=== PATIENT | male | born 1960 | race Caucasian/White ===

== ENCOUNTER 2021-11-29 19:59 | Emergency (ER) | payer OTHER ==
[2021-11-29] MEDS ORDERED: Sodium Chloride 0.9% 10 ML Syringe FLUSH PRN (20:05)
[2021-11-29] MEDS ORDERED: Aspirin 81 MG Tab.Chew PO ONE (20:11)
[2021-11-29] MEDS ORDERED: Nitroglycerin 0.4 MG Tab.SL SL PRN (20:12)
[2021-11-29] MEDS ORDERED: Sodium Chloride 0.9% 1,000 ML IV SCH (20:15)
[2021-11-29 20:48] LABS: ESTIMATED GFR 62 mL/min (>60)
[2021-11-29 20:53] LABS: TROPONIN I HIGH SENSITIVITY 2435.9 pg/mL (<=60.3)
[2021-11-29] MEDS ORDERED: Heparin Sodium 5,000 Units/ML Vial IVPUSH ONE (20:54)
[2021-11-29] MEDS ORDERED: Heparin Sodium/D5W 25,000 UNITS/500 ML BAG IV SCH (21:00)
[2021-11-29] MEDS ORDERED: Nitroglycerin/D5W 25 MG/250 ML BOTTLE IV SCH (21:15)
== END 2021-11-29 23:09 ==
LOC: JP.ED 19:59
DX: I21.4 Non-ST elevation (NSTEMI) myocardial infarction (principal); Z79.899 Other long term (current) drug therapy; Z20.822 Contact with and (suspected) exposure to COVID-19
CPT/HCPCS: 36415; 80053; 84439; 84443; 84484; 85025; 85610; 85730; 87635; 93005; 96361; 96365; 96368; 99285; A9270; J1644; J3490; J7030; U0002